=== PATIENT | male | born 1995 | race Caucasian/White ===

== ENCOUNTER 2021-03-15 17:28 | Emergency (ER) | payer OTHER ==
[2021-03-15 17:39] VITALS: PULSE 94; RESP 18; TEMP 97.9
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
== END 2021-03-15 19:02 | disposition home or self-care (01) ==
LOC: EC 17:28
DX: Z02.83 Encounter for blood-alcohol and blood-drug test (principal)
CPT/HCPCS: 99281